=== PATIENT | female | born 1995 | race Caucasian/White ===

== ENCOUNTER 2016-09-12 07:47 | Outpatient (CLI) | payer MEDICAID, OTHER ==
[2016-09-12 09:17] LABS: #Basophils 0.1 thou/uL (0.0-0.2); #Eosinphils 0.4 thou/uL (0.0-0.7); #Lymphocytes 2.1 thou/uL (1.20-3.40); #Monocytes 0.7 thou/uL (0.11-0.59); #Neutrophils 6.7 thou/uL (1.40-6.50); %Basophils 0.7 % (0.0-1.0); %Eosinophils 4.1 % (0.0-10.0); %Monocytes 6.6 % (0.0-10.0); %Neutrophils 67.6 % (42.0-75.0); Hemoglobin 11.1 g/dL (12.0-16.0); Mean Corpuscular HGB CONC 35.2 g/dL (32.0-36.0); Mean Corpuscular Hemoglobin 33.7 pg (27.0-31.0); Mean Corpuscular Volume 95.7 fl (81.0-99.0); Mean Platelet Volume 9.2 fL (7.4-10.4); Platelet Count 247 thou/uL (130-400); RBC Distribution Width 11.6 % (11.5-14.5); White Blood Cell (WBC) Count 9.9 thou/uL (4.8-10.8)
[2016-09-12 17:17] LABS: HIV (1/2) Antibody/Antigen Non-Reactive (NonReactive); HIV 1/2 INDEX 0.19 S/CO (<1.00)
== END 2016-09-12 07:48 | disposition home or self-care (01) ==
LOC: MADLABBHPM 07:47
PROVIDERS: ATTEND Family Medicine
DX: Z34.02 Encounter for supervision of normal first pregnancy, second trimester (principal)
CPT/HCPCS: 36415; 82950; 85025; 86592; 86850; 87389

== ENCOUNTER 2016-10-31 15:10 | Outpatient (CLI) | payer OTHER | END 2016-10-31 15:11 | disposition home or self-care (01) | LOC: MADLABBHPM 15:10 | PROVIDERS: ATTEND Family Medicine | DX: Z34.03 Encounter for supervision of normal first pregnancy, third trimester (principal) | CPT/HCPCS: 87081 ==

== ENCOUNTER 2019-06-21 09:04 | Emergency (ER) | payer OTHER ==
[2019-06-21] MEDS ORDERED: Morphine 2 MG/ML SYRINGE ONE (09:35)
--- NOTE | 2019-06-21 10:21 | RAD ---
Exam: Abdomen one view HISTORY: Abdominal pain, constipation, nausea and vomiting FINDINGS: Nonspecific bowel gas pattern. No suspicious densities in the abdomen or pelvis. No pneumoperitoneum on supine projection No osseous abnormalities. Note, the inferior pelvis is excluded on this exam. IMPRESSION: Unremarkable one view AP radiograph
== END 2019-06-21 10:33 | disposition home or self-care (01) ==
LOC: MADERS 09:04
DX: K59.00 Constipation, unspecified (principal); F31.9 Bipolar disorder, unspecified; F41.9 Anxiety disorder, unspecified
CPT/HCPCS: 74018; 96372; J2270